=== PATIENT | male | born 1980 | race Caucasian/White ===

== ENCOUNTER 2020-10-11 05:22 | Observation (INO) | payer OTHER ==
[2020-10-11] MEDS ORDERED: WELLBUTRIN (05:34)
[2020-10-11] MEDS ORDERED: PROZAC10 M2 PO (05:46)
[2020-10-11 06:31] LABS: HEMATOCRIT 49.2 % (42.0-52.0); HEMOGLOBIN 17.2 g/dL (13.5-18.0); MEAN CELL VOLUME 84 fl (78-100); MEAN CORPUSCULAR HEMOGLOBIN 30 pg (27-31); MEAN CORPUSCULAR HGB CONC 35 g/dL (33-37); MEAN PLATELET VOLUME 10.2 fl (7.4-10.4); PLATELET COUNT 255 K/mm3 (130-400); RED BLOOD COUNT 5.84 M/mm3 (4.20-5.60); RED CELL DISTRIBUTION WIDTH 12.8 % (11.5-14.5); WHITE BLOOD COUNT 10.8 K/mm3 (4.8-10.8)
[2020-10-11 06:42] LABS: ALBUMIN 4.7 g/dL (3.5-5.0)
[2020-10-11 06:43] LABS: POTASSIUM 4.3 mmol/L (3.5-5.1)
[2020-10-11 06:44] LABS: CALCIUM 9.8 mg/dL (8.3-10.5)
[2020-10-11 06:47] LABS: TOTAL BILIRUBIN 1.1 mg/dL (0.2-1.2)
[2020-10-11 06:54] LABS: LYMPHOCYTE 15 % (20-51); MONOCYTE 4 % (3-10); NEUTROPHILS 81 % (42-75)
[2020-10-11 08:36] LABS: URINE COLOR DK YELLOW
[2020-10-11 08:51] LABS: PH-URINE 8.5 (5.0 - 8.0); URINE APPEARANCE HAZY; URINE BILIRUBIN 1+ (NEGATIVE); URINE BLOOD TRACE (NEGATIVE); URINE GLUCOSE NEGATIVE (NEGATIVE); URINE KETONE NEGATIVE (NEGATIVE); URINE LEUKOCYTE ESTERASE TRACE (NEGATIVE); URINE MUCUS PRESENT (NOT PRESENT); URINE NITRATE NEGATIVE (NEGATIVE); URINE PROTEIN(semi-quant) TRACE mg/dL (NEGATIVE); URINE UROBILINOGEN 1 mg/dL (NORMAL)
[2020-10-11 12:05] VITALS: BP 127/90
--- NOTE | 2020-10-11 12:05 | NUR ---
Pt to room 203 via stretcher from ER. with pt. Pt and oriented to room. NG tube and INT intact from ER. NG tube hooked up to intermittant medium suction upon arrival to room.
[2020-10-11 14:16] VITALS: BP 128/85
--- NOTE | 2020-10-11 14:27 | NUR ---
Pt resting in bed with eyes closed and no signs of distress or discomfort noted. NG tube continues to pull gastric contents on medium intermittant suction. in room.
--- NOTE | 2020-10-11 17:25 | NUR ---
Pt stated that throat is still uncomfortable. Requests water or ice for sore throat. Per Dr. Elaine, ice chips are ok for pt to have.
[2020-10-11 17:42] VITALS: BP 143/87
--- NOTE | 2020-10-11 19:10 | NUR ---
Report from Shari TREJO. Up to BR with SBA. Voids 300 ML of yellow urine. Back to bed. IVF infusing 1/2 NS with 20 KCL at 125 ML/HR. Site patent to R wrist. NG tube in place at medium intermittent suction. . States no pain at this time. Drowsy. Dr. Elaine in to see and will talk with when she returns. Ice chips at bedside.
--- NOTE | 2020-10-11 19:13 | NUR ---
Report given to Savi Hendrix, MICROWAVE ENGINEER and care transferred. Pt denies pain at this time.
--- NOTE | 2020-10-11 19:17 | NUR ---
Assessment completed. Drowsy, flat affect. Lungs CTA. Heart RRR. BS sluggish. Abdomen Rounded. No pedal edema noted. Denies wants or needs.
--- NOTE | 2020-10-11 19:26 | NUR ---
Suction shut off per Order. Xray notified of order for Abdomen complete without chest.
--- NOTE | 2020-10-11 19:40 | NUR ---
Dr. Elaine in to talk to patient and .
--- NOTE | 2020-10-11 21:00 | NUR ---
IV fluids completed. Dr. Elaine to review Xray. remains at bedside. Updated on POC. Patient rates pain 06/22. Denies nausea.
--- NOTE | 2020-10-11 22:00 | NUR ---
Rests quietly with at bedside. Dosing off. States pain to abdomen is a 1/10 when he pushes on it. No N/V.
[2020-10-11 22:13] VITALS: BP 122/81
--- NOTE | 2020-10-11 22:42 | NUR ---
Suction resumed at this time x30 minutes per Dr. Elaine at medium intermittent.
--- NOTE | 2020-10-12 00:05 | NUR ---
Rests quietly with eyes closed. No S/S pain or nausea. IVF continue to infuse at 100 ML/HR. Site patent to R wrist. NG tube to medium intermittent suction.
[2020-10-12 02:10] VITALS: BP 124/81
--- NOTE | 2020-10-12 02:12 | NUR ---
Patient sleeping soundly when VISITOR SERVICES COORDINATOR enters room to obtain vitals. Has not had any verbalization of pain. VSS. IVF continue at 100 ML/HR. NG to medium intermittent suction.
--- NOTE | 2020-10-12 05:33 | NUR ---
Awake. Resting. Denies pain. Good output from NG tube. Continues at medium intermittent suction. IVF continue at 100 ML/HR. Denies wants or needs.
--- NOTE | 2020-10-12 05:54 | NUR ---
350 ML of output from NG tube since placed at this time.
[2020-10-12 06:01] VITALS: BP 126/81
--- NOTE | 2020-10-12 07:00 | NUR ---
NG tube clapped per MD request for ABD x-ray. Radiology notified.
--- NOTE | 2020-10-12 07:09 | NUR ---
Report to Shilpa/Shari TREJO.
--- NOTE | 2020-10-12 07:23 | NUR ---
Report recieved from [facility].
[2020-10-12 08:01] LABS: EOS # 0.1 (0.04-0.40); EOS % 1.5 % (0.0-4.0); HEMATOCRIT 47.4 % (42.0-52.0); HEMOGLOBIN 15.7 g/dL (13.5-18.0); LYMPH# 1.7 (1.50-4.00); MEAN CELL VOLUME 89 fl (78-100); MEAN CORPUSCULAR HEMOGLOBIN 29 pg (27-31); MEAN CORPUSCULAR HGB CONC 33 g/dL (33-37); MEAN PLATELET VOLUME 10.4 fl (7.4-10.4); MONO # 0.5 (0.20-0.80); NEU # 6.8 (1.40-6.50); PLATELET COUNT 216 K/mm3 (130-400); RED BLOOD COUNT 5.35 M/mm3 (4.20-5.60); RED CELL DISTRIBUTION WIDTH 12.9 % (11.5-14.5); WHITE BLOOD COUNT 9.2 K/mm3 (4.8-10.8)
--- NOTE | 2020-10-12 08:47 | NUR ---
Pt states that he has a MURRAY rating it a 2 out of 10. MD notified and order for Toradol 30mg given.
[2020-10-12 08:48] LABS: POTASSIUM 4.3 mmol/L (3.5-5.1)
[2020-10-12 08:50] LABS: CALCIUM 8.6 mg/dL (8.3-10.5)
--- NOTE | 2020-10-12 09:26 | NUR ---
Dr. Elaine in room with pt and pts . IV fluids stoped at [address] Elaine request after fluid bag completed. Pt states MURRAY pain has lessed after Toradol.
[2020-10-12 09:30] VITALS: BP 125/69
--- NOTE | 2020-10-12 10:36 | NUR ---
Pt ambulated per Dr. Elaine orders with no concerns, pt reports passing gas x2. Mr. Elaine order clear liquid diet as tolerated with or without NG tube. Pt educated that if NG tube is taken out there is a possibility that it will have to be placed again if pt begins to feel nauseous. Pt states he understand and would like to keep NG tube in. Pt given broth, coffee, and ice water. Educated to take small sips at this time then slowly increase as tolerated.
--- NOTE | 2020-10-12 11:04 | NUR ---
Pt states that he is tolerating the clear liquid diet with no concerns.
--- NOTE | 2020-10-12 13:46 | NUR ---
Pt sleeping in bed, no concerns at this time.
[2020-10-12 14:08] VITALS: BP 117/75
--- NOTE | 2020-10-12 14:37 | NUR ---
Pt ambulated the halls with no concerns.
--- NOTE | 2020-10-12 14:47 | NUR ---
NG tube take out, pt tolerated well.
--- NOTE | 2020-10-12 16:55 | NUR ---
Dr. Elaine in room with pt and pts .
[2020-10-12 17:23] VITALS: BP 121/81
--- NOTE | 2020-10-12 19:27 | NUR ---
Report received from Shilpa TREJO. Patient resting supine in bed with eyes closed. No signs of pain or distress.
--- NOTE | 2020-10-12 20:16 | NUR ---
calls and speaks to this nurse for update. No change in status. Patient remains asleep at this time.
--- NOTE | 2020-10-12 20:54 | NUR ---
Awake. rests in bed and on phone. Denies pain or nausea. BS heard and active all 4 quads. Requested and given jello. Agreeable to ambulate in halls with SUPERVISOR BODY ASSEMBLY.
--- NOTE | 2020-10-12 21:23 | NUR ---
Ambulated in hallways with TERMINAL MAKE UP OPERATOR, tolerated well.
[2020-10-12 22:13] VITALS: BP 114/72
--- NOTE | 2020-10-13 00:07 | NUR ---
Sleeping, no signs of pain or distress.
[2020-10-13 02:07] VITALS: BP 121/77
--- NOTE | 2020-10-13 02:39 | NUR ---
Restes with eyes closed. No pain, No N/V. VSS.
--- NOTE | 2020-10-13 03:10 | NUR ---
Up to BR and states to TRIMMER AND REINFORCER that he had a "large blow out". Lg loose BM. Assisted back to bed. No pain or nausea at this time.
[2020-10-13 05:53] VITALS: BP 124/76
--- NOTE | 2020-10-13 06:04 | NUR ---
Continues resting quietly. VSS. No pain, no nausea.
--- NOTE | 2020-10-13 06:56 | NUR ---
Report to Miguelina TREJO.
--- NOTE | 2020-10-13 07:00 | NUR ---
Report received from NEIL Campos. Pt in bed resting, baldo alicea, will continue to monitor.
--- NOTE | 2020-10-13 08:42 | NUR ---
Assessment charted. Pt feeling well, denies any nausea or vomiting. Advanced diet to GERD/bland diet per VORB from Dr. Elaine. Pt states he ate breakfast well and is tolerating it fine without any issues with pain or nausea. INT to RW. Denies other needs, at bedside awaiting visit from Dr. Medina. Will continue to monitor.
[2020-10-13 10:30] VITALS: BP 134/82
--- NOTE | 2020-10-13 11:02 | NUR ---
Discharge teaching completed at this time .Pt received discharge packet, reviewed packet, answered all questions, reviewed f/u appointment. PT INT dc'd, tip intact. Pt at bedside, pt left with all belongings, escorted out by myself, criteria met.
== END 2020-10-13 10:47 | disposition home or self-care (01) ==
LOC: ED 05:22 → MED/SURG 11:49
PROVIDERS: ADMIT Family Medicine
DX: K56.609 Unspecified intestinal obstruction, unspecified as to partial versus complete obstruction (principal); F32.9 Major depressive disorder, single episode, unspecified; F41.9 Anxiety disorder, unspecified; Z79.899 Other long term (current) drug therapy; Z90.89 Acquired absence of other organs
CPT/HCPCS: C9113; G0378; J1885; J2060; J3010; J3480; J3490; J7030; Q9967

== ENCOUNTER → 2020-11-17 | Day surgery (SDC) | payer OTHER ==
[~2020-11-17] MED LIST: PROZAC10 M2 PO; WELLBUTRIN
== END | disposition home or self-care (01) ==
LOC: MSO 08:13
DX: Z12.11 Encounter for screening for malignant neoplasm of colon (principal); Z80.0 Family history of malignant neoplasm of digestive organs; K63.89 Other specified diseases of intestine; F41.9 Anxiety disorder, unspecified; F32.9 Major depressive disorder, single episode, unspecified; Z79.899 Other long term (current) drug therapy
CPT/HCPCS: 00811; J2704; J3010; J7120

== ENCOUNTER 2021-01-22 18:11 | Emergency (ER) | payer OTHER ==
[2021-01-22 19:19] LABS: BASO # 0.03 (0.02-0.10); EOS # 0.07 (0.04-0.40); EOS % 1.7 % (0.0-4.0); HEMATOCRIT 45.8 % (42.0-52.0); HEMOGLOBIN 15.8 g/dL (13.5-18.0); LYMPH# 1.35 (1.50-4.00); MEAN CELL VOLUME 86 fl (78-100); MEAN CORPUSCULAR HEMOGLOBIN 30 pg (27-31); MEAN CORPUSCULAR HGB CONC 35 g/dL (33-37); MEAN PLATELET VOLUME 10.2 fl (7.4-10.4); MONO # 0.52 (0.20-0.80); NEU # 2.09 (1.40-6.50); PLATELET COUNT 121 K/mm3 (130-400); RED BLOOD COUNT 5.33 M/mm3 (4.20-5.60); RED CELL DISTRIBUTION WIDTH 12.2 % (11.5-14.5); WHITE BLOOD COUNT 4.1 K/mm3 (4.8-10.8)
[2021-01-22 19:30] LABS: URINE APPEARANCE CLEAR; URINE BILIRUBIN NEGATIVE (NEGATIVE); URINE BLOOD NEGATIVE (NEGATIVE); URINE COLOR YELLOW; URINE GLUCOSE NEGATIVE (NEGATIVE); URINE KETONE NEGATIVE (NEGATIVE); URINE LEUKOCYTE ESTERASE NEGATIVE (NEGATIVE); URINE NITRATE NEGATIVE (NEGATIVE); URINE PROTEIN(semi-quant) TRACE mg/dL (NEGATIVE); URINE UROBILINOGEN 4 mg/dL (NORMAL); URINE WBC 0-1 /hpf (0-3)
[2021-01-22 20:03] VITALS: BP 138/72
== END 2021-01-22 20:08 | disposition home or self-care (01) ==
LOC: ED 18:11
PROVIDERS: Physician Assistant
DX: E86.0 Dehydration (principal); R51.9 Headache, unspecified; R53.81 Other malaise
CPT/HCPCS: J1885; J7030